=== PATIENT | male | born 1935 | race Caucasian/White ===

== ENCOUNTER 2020-06-23 11:00 | Inpatient (IN) ==
[2020-07-01] MEDS ORDERED: GLUCAGON 1 MG VIAL IM PRN ×2 (09:07)
[2020-07-01] MEDS ORDERED: DEXTROSE 50% 25 GM/50 ML VIAL IV PRN ×2 (09:07)
[2020-07-01 09:34] LABS: Basophils % 0.4 % (0.0-0.8); Eosinophils # 0.3 10*3/uL (0.0-0.87); Eosinophils % 3.7 % (0.00-10.9); Hematocrit 36.6 VOL% (42.0-52.0); Hemoglobin 12.3 GM/DL (14.0-18.0); Immature Granulocytes % 0.5 %; Immature Granulocytes Absolute 0.04 #; Lymphocytes # 0.7 10*3/uL (1.4-4.0); Lymphocytes % 8.5 % (21.2-54.2); Mean Corpuscular HGB Conc 33.6 GM/DL (32-36); Mean Corpuscular Volume 96.1 FL (87-102); Mean Platelet Volume 10.6 FL (9.6-12.0); Monocytes % 12.2 % (1.7-12.7); Neutrophils % 74.7 % (38.7-73.9); Platelet Count 238 T/CUMM (130-400); Red Blood Count 3.81 MC/CUMM (3.8-5.5); Red Cell Distribution Width 13.4 % (9.3-17.3); White Blood Count 7.9 T/CUMM (4-12)
[2020-07-01 09:52] LABS: Albumin 3.3 G/DL (3.4-5.0); Bilirubin,Total 0.4 MG/DL (0.2-1.0); Calcium 9.1 MG/DL (8.5-10.1); Osmolality,Calculated 286.4 MOS/KG (273-304); Potassium 4.6 MMOL/L (3.5-5.1); Total Protein 6.5 G/DL (6.4-8.2)
[2020-07-01] MEDS ORDERED: ZALEPLON 5 MG CAPSULE PO PRN (10:01)
[2020-07-01] MEDS ORDERED: NITROGLYCERIN SL 0.4 MG TABLET SL PRN (10:30)
[2020-07-01] MEDS: CHLORHEXIDINE 0.12% ORAL RINSE 60 ML BOTTLE SWISH/SPIT SCH ×2 (10:55→20:07)
[2020-07-01] MEDS: SODIUM CHLORIDE 0.9% 1,000 ML IV SCH (10:55)
[2020-07-01 11:15] LABS: ABG Base Excess 0.9 MMOL/L (-2.5-2.5); ABG HCO3 25.1 MMOL/L (20-26); ABG Oxygen Saturation 94.9 % (95-100); ABG PCO2 44.3 MM HG (35-48); ABG PH 7.381 (7.35-7.45); ABG PO2 80.9 MM HG (80-95); ABG TCO2 23.4 MMOL/L (23-27)
[2020-07-01] MEDS: INSULIN REGULAR 100 UNIT/ML SUBCUT SCH ×3 (12:21→20:07)
[2020-07-01] MEDS: CHLORHEXIDINE 4% SOLN 118 ML BOTTLE TOP SCH ×2 (14:00→20:06)
[2020-07-01] MEDS: TRAVOPROST 0.004% OPH SOLN 2.5 ML BOTTLE RIGHT EYE SCH (20:06)
[2020-07-01] MEDS: DORZOLAMIDE/TIMOLOL OPH SOLN 10 ML BOTTLE BOTH EYES SCH (20:06)
[2020-07-01] MEDS ORDERED: LOSARTAN 25 MG TABLET PO SCH (21:00)
[2020-07-02] MEDS ORDERED: DIAZEPAM 5 MG TABLET PO ONE ×2 (00:02→05:45)
[2020-07-02] MEDS ORDERED: VANCOMYCIN 500 MG VIAL ONE (04:24)
[2020-07-02] MEDS ORDERED: VANCOMYCIN 1,000 MG VIAL ONE (04:24)
[2020-07-02] MEDS ORDERED: PAPAVERINE 60 MG/2 ML VIAL ONE (04:24)
[2020-07-02] MEDS ORDERED: CEFUROXIME INJ 1,500 MG in SODIUM CHLORIDE 0.9% 100 ML IV ONE (05:00)
[2020-07-02] MEDS ORDERED: LACTATED RINGERS 1,000 ML IV ONE (05:26)
[2020-07-02] MEDS ORDERED: AMINOCAPROIC ACID 5,000 MG/20 ML VIAL ONE (05:26)
[2020-07-02] MEDS ORDERED: SODIUM CHLORIDE 0.9% 1,000 ML IV ONE (05:26)
[2020-07-02] MEDS ORDERED: VECURONIUM 10 MG VIAL IV ONE (05:26)
[2020-07-02] MEDS ORDERED: LIDOCAINE 2% 5 ML VIAL ONE ×2 (05:26→09:32)
[2020-07-02] MEDS ORDERED: ETOMIDATE 40 MG/20 ML VIAL IV ONE (05:26)
[2020-07-02] MEDS ORDERED: SODIUM CHLORIDE 0.9% 250 ML IV ONE (05:26)
[2020-07-02] MEDS ORDERED: HEPARIN/NACL 0.9% 2 UNITS/ML 1,000 UNIT/500 ML BAG IV ONE (05:26)
[2020-07-02] MEDS ORDERED: SUFentanil 250 MCG/5 ML AMP ONE (05:27)
[2020-07-02] MEDS ORDERED: MIDAZOLAM 10 MG/2 ML VIAL ONE ×4 (05:27)
[2020-07-02] MEDS ORDERED: CALCIUM CHLORIDE 1,000 MG/10 ML VIAL IV ONE (05:28)
[2020-07-02] MEDS ORDERED: FAMOTIDINE 20 MG TABLET PO ONE (05:45)
[2020-07-02] MEDS ORDERED: SEVOFLURANE 1 UNIT/15 MINUTE INH ONE ×7 (06:46→10:41)
[2020-07-02] MEDS ORDERED: POTASSIUM CHLORIDE RIDER 100 ML IV ONE ×2 (07:36→12:00)
[2020-07-02] MEDS ORDERED: PHENYLEPHRINE DRIP 40 MG/250 ML PREMIX IV ONE (07:36)
[2020-07-02] MEDS ORDERED: ALBUMIN 5% 25.0 GM/500 ML VIAL IV ONE ×2 (07:36→07:45)
[2020-07-02 07:37] LABS: ABG Base Excess 0.4 MMOL/L (-2.5-2.5); ABG HCO3 24.8 MMOL/L (20-26); ABG Oxygen Saturation 99.3 % (95-100); ABG PCO2 42.3 MM HG (35-48); ABG PH 7.388 (7.35-7.45); ABG TCO2 23.3 MMOL/L (23-27); Glucose Heart Surgery 122 MG/DL (74-106); Hematocrit Heart Surgery 30.7 PERCENT (42-52); Hemoglobin Heart Surgery 9.9 G/DL (14.0-18.0); Ionized Calcium Arterial 1.16 MMOL/L (1.21-1.46); PCO2 Patient Temp Arterial 42.3 MMHG; PH Patient Temp Arterial 7.388; Patient Temperature 37 CELCIUS; Potassium Heart/CVR 3.5 MMOL/L (3.5-5.1); Sodium Heart/CVR 143 MMOL/L (135-145)
[2020-07-02] MEDS ORDERED: PHENYLEPHRINE DRIP 20 MG/250 ML PREMIX IV ONE (07:44)
[2020-07-02] MEDS ORDERED: SUFentanil 50 MCG/ML AMP ONE (07:44)
[2020-07-02 07:56] LABS: Bilirubin,Urine Negative (Negative); Blood, Urine Negative (Negative); Glucose,Urine (UA) Negative (Negative); Ketones,Urine Negative (Negative); Mucus,Urine Occasional /LPF (Occasional); Nitrite,Urine Negative (Negative); Protein,Urine Negative; RBC,Urine 3 /HPF (0-4); Urine Appearance CLEAR (Clear); Urine Color Yellow (Yellow); Urine Specific Gravity 1.012 (1.001-1.035); Urine Urobilinogen < 2.0 EU/DL (0.2-1.0)
[2020-07-02 08:27] LABS: Hematocrit Heart Surgery 18.8 PERCENT (42-52); PCO2 Patient Temp Venous 35.8 MM HG; PH Patient Temp Venous 7.448; PO2 Patient Temp Venous 40.5 MM HG; Potassium Heart/CVR 4.2 MMOL/L (3.5-5.1); VBG Base Excess 1.2 MEQ/L (0-4); VBG HCO3 25.3 MEQ/L (24-28); VBG Oxygen Saturation 85.3 %; VBG PCO2 41.4 MMHG (41-51); VBG PH 7.405; VBG PO2 49.6 MMHG (17-40); VBG Total CO2 24.9 MMOL/L
[2020-07-02] MEDS: SODIUM CHLORIDE 0.9% 1,000 ML IV SCH (08:43)
[2020-07-02] MEDS: INSULIN REGULAR 100 UNIT/ML SUBCUT SCH (08:43)
[2020-07-02] MEDS: CHLORHEXIDINE 4% SOLN 118 ML BOTTLE TOP SCH (08:43)
[2020-07-02] MEDS: CHLORHEXIDINE 0.12% ORAL RINSE 60 ML BOTTLE SWISH/SPIT SCH ×2 (08:43→20:59)
[2020-07-02] MEDS: DORZOLAMIDE/TIMOLOL OPH SOLN 10 ML BOTTLE BOTH EYES SCH ×2 (08:43→21:44)
[2020-07-02 08:56] LABS: Hematocrit Heart Surgery 29.2 PERCENT (42-52); Hemoglobin Heart Surgery 9.4 G/DL (14.0-18.0); PCO2 Patient Temp Venous 30.9 MM HG; PH Patient Temp Venous 7.476; PO2 Patient Temp Venous 36.2 MM HG; Potassium Heart/CVR 5.2 MMOL/L (3.5-5.1); VBG Base Excess -0.1 MEQ/L (0-4); VBG HCO3 24.1 MEQ/L (24-28); VBG Oxygen Saturation 84.4 %; VBG PCO2 35.7 MMHG (41-51); VBG PH 7.432; VBG PO2 44.5 MMHG (17-40); VBG Total CO2 21.8 MMOL/L
[2020-07-02] MEDS ORDERED: THROMBIN TOPICAL (RECOMBINANT) 5,000 UNIT VIAL TOP ONE (09:20)
[2020-07-02] MEDS ORDERED: ALBUMIN 25% 25 GM/100 ML VIAL IV ONE (09:32)
[2020-07-02] MEDS ORDERED: MAGNESIUM SULFATE 5 GM/10 ML VIAL IV ONE (09:32)
[2020-07-02] MEDS ORDERED: methylPREDNISolone SOD SUC 1,000 MG/8 ML VIAL ONE (09:32)
[2020-07-02] MEDS ORDERED: MANNITOL 100 GM/500 ML BAG IV ONE (09:33)
[2020-07-02] MEDS ORDERED: FUROSEMIDE 20 MG/2 ML VIAL ONE (09:33)
[2020-07-02] MEDS ORDERED: DEXTROSE 5% KCL 20 MEQ 20 MEQ/1,000 ML BAG IV ONE (09:33)
[2020-07-02] MEDS ORDERED: PROTAMINE SULFATE 250 MG/25 ML VIAL IV ONE (09:33)
[2020-07-02] MEDS ORDERED: HEPARIN 10,000 UNIT/10 ML VIAL ONE (09:33)
[2020-07-02] MEDS ORDERED: SODIUM BICARBONATE 50 MEQ/50 ML VIAL IV ONE (09:33)
[2020-07-02 09:43] LABS: ABG Base Excess -0.5 MMOL/L (-2.5-2.5); ABG Oxygen Saturation 99.6 % (95-100); ABG PCO2 37.3 MM HG (35-48); ABG PH 7.413 (7.35-7.45); ABG TCO2 21.3 MMOL/L (23-27); Glucose Heart Surgery 275 MG/DL (74-106); Hematocrit Heart Surgery 34.1 PERCENT (42-52); Ionized Calcium Arterial 1.29 MMOL/L (1.21-1.46); PCO2 Patient Temp Arterial 37.3 MMHG; PH Patient Temp Arterial 7.413; Patient Temperature 37 CELCIUS; Potassium Heart/CVR 4.7 MMOL/L (3.5-5.1); Sodium Heart/CVR 135 MMOL/L (135-145)
[2020-07-02] MEDS ORDERED: FAMOTIDINE 20 MG/2 ML VIAL IV ONE (09:49)
[2020-07-02] MEDS ORDERED: diphenhydrAMINE 50 MG/1 ML VIAL ONE (09:51)
[2020-07-02] MEDS ORDERED: ALBUTEROL INHALER 18 GM INH ONE (10:00)
[2020-07-02] MEDS: SODIUM CHLORIDE 0.45% 1,000 ML IV SCH ×2 (10:30)
[2020-07-02] MEDS: LACTATED RINGERS 1,000 ML IV PRN ×3 (10:30→13:00)
[2020-07-02] MEDS: PHENYLEPHRINE DRIP 40 MG/250 ML PREMIX IV PRN (10:40)
[2020-07-02] MEDS ORDERED: CHLORHEXIDINE 4% SOLN 118 ML BOTTLE TOP PRN (10:51)
[2020-07-02] MEDS ORDERED: VECURONIUM 10 MG VIAL IV PRN ×2 (10:51)
[2020-07-02] MEDS ORDERED: MIDAZOLAM 10 MG/2 ML VIAL IV PRN (10:51)
[2020-07-02] MEDS ORDERED: MORPHINE 4 MG/1 ML VIAL IV PRN (10:51)
[2020-07-02] MEDS ORDERED: MAGNESIUM SULF RIDER 4 GM in PREMIX 1 EACH IV PRN (10:51)
[2020-07-02] MEDS ORDERED: INSULIN REGULAR 100 UNIT/ML IV ONE (10:51)
[2020-07-02] MEDS ORDERED: DEXTROSE 50% 25 GM/50 ML VIAL IV PRN ×2 (10:51)
[2020-07-02] MEDS ORDERED: MAGNESIUM SULF RIDER 2 GM in PREMIX 1 EACH IV PRN (10:51)
[2020-07-02] MEDS ORDERED: LACTATED RINGERS 250 ML IV PRN (10:51)
[2020-07-02] MEDS ORDERED: CALCIUM CHLORIDE 1,000 MG/10 ML SYRINGE IV PRN (10:51)
[2020-07-02] MEDS ORDERED: INSULIN REGULAR 100 UNIT/ML IV PRN (10:51)
[2020-07-02] MEDS ORDERED: ACETAMINOPHEN 650 MG SUPP RECTAL PRN (10:51)
[2020-07-02] MEDS ORDERED: NITROPRUSSIDE 100 MG in DEXTROSE 5% 250 ML IV PRN (10:51)
[2020-07-02] MEDS ORDERED: ONDANSETRON 4 MG/2 ML VIAL IV PRN (10:51)
[2020-07-02] MEDS ORDERED: MIDAZOLAM 2 MG/2 ML VIAL IV PRN (10:51)
[2020-07-02] MEDS ORDERED: MORPHINE 10 MG/1 ML VIAL IV PRN (10:51)
[2020-07-02 11:06] LABS: ABG Base Excess -0.1 MMOL/L (-2.5-2.5); ABG HCO3 24.4 MMOL/L (20-26); ABG Oxygen Saturation 98.1 % (95-100); ABG PCO2 39.3 MM HG (35-48); ABG PH 7.403 (7.35-7.45); Glucose Heart Surgery 270 MG/DL (74-106); Hematocrit Heart Surgery 33.8 PERCENT (42-52); Potassium Heart/CVR 3.9 MMOL/L (3.5-5.1)
[2020-07-02 11:08] LABS: Basophils % 0.2 % (0.0-0.8); Eosinophils # 0.1 10*3/uL (0.0-0.87); Hematocrit 31.7 VOL% (42.0-52.0); Hemoglobin 10.6 GM/DL (14.0-18.0); Immature Granulocytes % 1.3 %; Immature Granulocytes Absolute 0.15 #; Lymphocytes # 0.8 10*3/uL (1.4-4.0); Lymphocytes % 6.9 % (21.2-54.2); Mean Corpuscular HGB Conc 33.4 GM/DL (32-36); Mean Corpuscular Volume 93.2 FL (87-102); Mean Platelet Volume 10.6 FL (9.6-12.0); Monocytes % 6.9 % (1.7-12.7); Neutrophils % 83.7 % (38.7-73.9); Platelet Count 189 T/CUMM (130-400); Red Cell Distribution Width 14.2 % (9.3-17.3); White Blood Count 11.5 T/CUMM (4-12)
[2020-07-02 11:19] LABS: INR 1.2; Partial Thromboplastin Time 28.2 SECS (23.9-33.8)
[2020-07-02] MEDS ORDERED: PROTAMINE SULFATE 50 MG/5 ML VIAL IV ONE ×2 (11:33→11:34)
[2020-07-02 11:39] LABS: CKMB % 6.8 %
[2020-07-02] MEDS: POTASSIUM CHLORIDE RIDER 20 MEQ in PREMIX 1 EACH IV PRN ×3 (11:40→22:16)
[2020-07-02 11:43] LABS: Albumin 3.3 G/DL (3.4-5.0); Bilirubin,Total 1.1 MG/DL (0.2-1.0); Calcium 8.8 MG/DL (8.5-10.1); Osmolality,Calculated 284.7 MOS/KG (273-304); Potassium 4.1 MMOL/L (3.5-5.1); Total Protein 5.6 G/DL (6.4-8.2); Troponin I 5.12 NG/ML (0.00-0.045)
[2020-07-02] MEDS: ALBUMIN 5% 12.5 GM/250 ML VIAL IV PRN ×2 (11:55→16:28)
[2020-07-02] MEDS: POTASSIUM CHLORIDE RIDER 10 MEQ in PREMIX 1 EACH IV PRN ×2 (12:10→14:29)
[2020-07-02 13:38] LABS: ABG Base Excess 1.8 MMOL/L (-2.5-2.5); ABG HCO3 25.8 MMOL/L (20-26); ABG Oxygen Saturation 97.3 % (95-100); ABG PCO2 37.5 MM HG (35-48); ABG PH 7.455 (7.35-7.45); ABG PO2 122.2 MM HG (80-95); ABG TCO2 26.9 MMOL/L (23-27); Glucose Heart Surgery 233 MG/DL (74-106); Potassium Heart/CVR 3.9 MMOL/L (3.5-5.1)
[2020-07-02] MEDS: INSULIN REGULAR DRIP 100 ML IV SCH (13:52)
[2020-07-02 16:19] LABS: ABG Base Excess 0.4 MMOL/L (-2.5-2.5); ABG HCO3 24.8 MMOL/L (20-26); ABG Oxygen Saturation 98.3 % (95-100); ABG PCO2 41.3 MM HG (35-48); ABG PH 7.396 (7.35-7.45); ABG TCO2 22.6 MMOL/L (23-27); Glucose Heart Surgery 230 MG/DL (74-106); Hematocrit Heart Surgery 35.2 PERCENT (42-52); Hemoglobin Heart Surgery 11.4 G/DL (14.0-18.0); Potassium Heart/CVR 3.7 MMOL/L (3.5-5.1)
[2020-07-02] MEDS: CEFUROXIME INJ 1,500 MG in SODIUM CHLORIDE 0.9% 100 ML IV SCH (18:24)
[2020-07-02 19:58] LABS: CKMB % 4.9 %
[2020-07-02 19:59] LABS: Troponin I 4.38 NG/ML (0.00-0.045)
[2020-07-02] MEDS: TRAVOPROST 0.004% OPH SOLN 2.5 ML BOTTLE RIGHT EYE SCH (21:45)
[2020-07-02 22:00] LABS: ABG Base Excess 0.6 MMOL/L (-2.5-2.5); ABG Oxygen Saturation 97.6 % (95-100); ABG PCO2 49.1 MM HG (35-48); ABG PH 7.347 (7.35-7.45); ABG TCO2 24.2 MMOL/L (23-27); Glucose Heart Surgery 113 MG/DL (74-106); Hematocrit Heart Surgery 35.3 PERCENT (42-52); Hemoglobin Heart Surgery 11.4 G/DL (14.0-18.0); Potassium Heart/CVR 3.8 MMOL/L (3.5-5.1)
[2020-07-02 23:00] LABS: ABG Base Excess -0.8 MMOL/L (-2.5-2.5); ABG HCO3 23.7 MMOL/L (20-26); ABG Oxygen Saturation 97.3 % (95-100); ABG PCO2 53.4 MM HG (35-48); ABG PH 7.302 (7.35-7.45); ABG TCO2 23.9 MMOL/L (23-27); Glucose Heart Surgery 134 MG/DL (74-106); Hemoglobin Heart Surgery 11.4 G/DL (14.0-18.0); Potassium Heart/CVR 4.9 MMOL/L (3.5-5.1)
[2020-07-02] MEDS ORDERED: FUROSEMIDE 40 MG/4 ML VIAL IV ONE (23:07)
[2020-07-03 00:02] LABS: ABG Base Excess -1.2 MMOL/L (-2.5-2.5); ABG HCO3 23.4 MMOL/L (20-26); ABG Oxygen Saturation 97.3 % (95-100); ABG PCO2 55.9 MM HG (35-48); ABG PH 7.284 (7.35-7.45); Glucose Heart Surgery 135 MG/DL (74-106); Hematocrit Heart Surgery 35.9 PERCENT (42-52); Hemoglobin Heart Surgery 11.6 G/DL (14.0-18.0); Potassium Heart/CVR 4.6 MMOL/L (3.5-5.1)
[2020-07-03] MEDS: ALBUTEROL/IPRATROPIUM 3 ML NEB RESP TX SCH ×7 (00:41→23:02)
[2020-07-03 01:08] LABS: ABG Base Excess -0.2 MMOL/L (-2.5-2.5); ABG HCO3 24.2 MMOL/L (20-26); ABG Oxygen Saturation 97.1 % (95-100); ABG PCO2 58.5 MM HG (35-48); ABG PH 7.284 (7.35-7.45); Glucose Heart Surgery 121 MG/DL (74-106); Hematocrit Heart Surgery 36.6 PERCENT (42-52); Hemoglobin Heart Surgery 11.9 G/DL (14.0-18.0); Potassium Heart/CVR 4.4 MMOL/L (3.5-5.1)
[2020-07-03] MEDS: POTASSIUM CHLORIDE RIDER 20 MEQ in PREMIX 1 EACH IV PRN (01:23)
[2020-07-03] MEDS ORDERED: ALBUTEROL/IPRATROPIUM 3 ML NEB RESP TX SCH (03:00)
[2020-07-03 04:16] LABS: ABG Base Excess -4.2 MMOL/L (-2.5-2.5); ABG HCO3 20.9 MMOL/L (20-26); ABG Oxygen Saturation 96.2 % (95-100); ABG PCO2 63.8 MM HG (35-48); ABG TCO2 23.1 MMOL/L (23-27); Glucose Heart Surgery 147 MG/DL (74-106); Hematocrit Heart Surgery 35.7 PERCENT (42-52); Hemoglobin Heart Surgery 11.6 G/DL (14.0-18.0); Potassium Heart/CVR 4.7 MMOL/L (3.5-5.1)
[2020-07-03 04:17] LABS: ABG PH 7.204 (7.35-7.45)
[2020-07-03 04:21] LABS: Basophils % 0.1 % (0.0-0.8); Hematocrit 34.8 VOL% (42.0-52.0); Hemoglobin 11.3 GM/DL (14.0-18.0); Immature Granulocytes % 0.7 %; Immature Granulocytes Absolute 0.15 #; Lymphocytes # 1.2 10*3/uL (1.4-4.0); Lymphocytes % 5.9 % (21.2-54.2); Mean Corpuscular HGB Conc 32.5 GM/DL (32-36); Mean Corpuscular Volume 92.6 FL (87-102); Mean Platelet Volume 11.2 FL (9.6-12.0); Monocytes % 8.1 % (1.7-12.7); Neutrophils % 85.2 % (38.7-73.9); Platelet Count 152 T/CUMM (130-400); Red Blood Count 3.76 MC/CUMM (3.8-5.5); Red Cell Distribution Width 16.4 % (9.3-17.3); White Blood Count 20.7 T/CUMM (4-12)
[2020-07-03 04:42] LABS: Albumin 3.5 G/DL (3.4-5.0); Bilirubin,Direct 0.31 MG/DL (0.0-0.20); Bilirubin,Total 0.8 MG/DL (0.2-1.0); Calcium 8.4 MG/DL (8.5-10.1); Potassium 4.8 MMOL/L (3.5-5.1); Total Protein 6.1 G/DL (6.4-8.2)
[2020-07-03 04:50] LABS: Band Neutrophils 1 % (0-10); Eosinophils 1 % (0-10); Lymphocytes 6 % (20-55); Segmented Neutrophils 90 % (50-85); Total Cells Counted 100
[2020-07-03 04:51] LABS: Platelet Estimate Normal
[2020-07-03] MEDS ORDERED: HALOPERIDOL 5 MG/ML AMP IM ONE (05:00)
[2020-07-03 05:16] LABS: CKMB % 3.9 %
[2020-07-03 05:17] LABS: Troponin I 3.79 NG/ML (0.00-0.045)
[2020-07-03] MEDS: KETOROLAC 15 MG/1 ML VIAL IV SCH ×4 (05:23→23:06)
[2020-07-03] MEDS ORDERED: HALOPERIDOL 5 MG/ML AMP IV ONE ×2 (05:30→05:37)
[2020-07-03] MEDS: CEFUROXIME INJ 1,500 MG in SODIUM CHLORIDE 0.9% 100 ML IV SCH ×2 (05:44→17:27)
[2020-07-03] MEDS: DORZOLAMIDE/TIMOLOL OPH SOLN 10 ML BOTTLE BOTH EYES SCH ×2 (09:46→20:51)
[2020-07-03] MEDS: CHLORHEXIDINE 0.12% ORAL RINSE 60 ML BOTTLE SWISH/SPIT SCH ×2 (11:42→20:49)
[2020-07-03] MEDS: HALOPERIDOL 5 MG/ML AMP IV PRN ×2 (11:55→16:53)
[2020-07-03 12:27] LABS: CKMB % 2.3 %
[2020-07-03 12:31] LABS: Troponin I 3.57 NG/ML (0.00-0.045)
[2020-07-03] MEDS: INSULIN REGULAR DRIP 100 ML IV SCH (14:02)
[2020-07-03] MEDS: SODIUM CHLORIDE 0.45% 1,000 ML IV SCH ×2 (14:04)
[2020-07-03] MEDS: SODIUM CHLOR 0.45% KCL 20 MEQ 20 MEQ/1,000 ML BAG IV SCH (14:30)
[2020-07-03] MEDS: ALPRAZolam 0.25 MG TABLET PO PRN (18:40)
[2020-07-03] MEDS: ZIPRASIDONE 20 MG/1 ML VIAL IM PRN (18:41)
[2020-07-03] MEDS: INSULIN REGULAR 100 UNIT/ML SUBCUT SCH (19:32)
[2020-07-03] MEDS: TRAVOPROST 0.004% OPH SOLN 2.5 ML BOTTLE RIGHT EYE SCH (20:51)
[2020-07-04] MEDS: INSULIN REGULAR 100 UNIT/ML SUBCUT SCH ×6 (00:15→21:25)
[2020-07-04] MEDS: ZIPRASIDONE 20 MG/1 ML VIAL IM PRN ×2 (01:16→07:58)
[2020-07-04] MEDS: ALBUTEROL/IPRATROPIUM 3 ML NEB RESP TX SCH (02:45)
[2020-07-04] MEDS: ALPRAZolam 0.25 MG TABLET PO PRN (03:49)
[2020-07-04] MEDS ORDERED: AMIODARONE INJ 150 MG in DEXTROSE 5% 100 ML IV ONE (04:48)
[2020-07-04] MEDS ORDERED: AMIODARONE 150 MG/3 ML VIAL ONE (04:49)
[2020-07-04] MEDS ORDERED: AMIODARONE 450 MG/9 ML VIAL IV ONE ×2 (04:51→12:34)
[2020-07-04 04:53] LABS: ABG Base Excess 1.5 MMOL/L (-2.5-2.5); ABG HCO3 25.5 MMOL/L (20-26); ABG Oxygen Saturation 86.5 % (95-100); ABG PCO2 41.3 MM HG (35-48); ABG PO2 54.1 MM HG (80-95); ABG TCO2 23.5 MMOL/L (23-27); Glucose Heart Surgery 184 MG/DL (74-106); Hematocrit Heart Surgery 34.8 PERCENT (42-52); Hemoglobin Heart Surgery 11.3 G/DL (14.0-18.0); Potassium Heart/CVR 4.4 MMOL/L (3.5-5.1)
[2020-07-04 04:55] LABS: Basophils % 0.1 % (0.0-0.8); Hematocrit 33.5 VOL% (42.0-52.0); Immature Granulocytes % 0.6 %; Lymphocytes # 0.7 10*3/uL (1.4-4.0); Lymphocytes % 4.1 % (21.2-54.2); Mean Corpuscular HGB Conc 32.8 GM/DL (32-36); Mean Corpuscular Volume 92.3 FL (87-102); Mean Platelet Volume 11.1 FL (9.6-12.0); Monocytes % 10.7 % (1.7-12.7); Neutrophils % 84.5 % (38.7-73.9); Platelet Count 128 T/CUMM (130-400); Red Blood Count 3.63 MC/CUMM (3.8-5.5); White Blood Count 16.9 T/CUMM (4-12)
[2020-07-04] MEDS ORDERED: AMIODARONE INJ 450 MG in DEXTROSE 5% 241 ML IV SCH (05:00)
[2020-07-04 05:09] LABS: Albumin 3.1 G/DL (3.4-5.0); Bilirubin,Direct 0.29 MG/DL (0.0-0.20); Bilirubin,Total 0.8 MG/DL (0.2-1.0); Calcium 8.6 MG/DL (8.5-10.1); Osmolality,Calculated 290.5 MOS/KG (273-304); Potassium 4.4 MMOL/L (3.5-5.1); Total Protein 5.8 G/DL (6.4-8.2)
[2020-07-04 05:13] LABS: Lymphocytes 6 % (20-55); Segmented Neutrophils 85 % (50-85); Total Cells Counted 100
[2020-07-04 05:17] LABS: ABG Base Excess 0.5 MMOL/L (-2.5-2.5); ABG HCO3 24.8 MMOL/L (20-26); ABG Oxygen Saturation 96.1 % (95-100); ABG PCO2 43.8 MM HG (35-48); ABG PH 7.379 (7.35-7.45); ABG PO2 88.2 MM HG (80-95); ABG TCO2 23.1 MMOL/L (23-27)
[2020-07-04] MEDS ORDERED: FUROSEMIDE 40 MG/4 ML VIAL IV ONE (05:23)
[2020-07-04] MEDS ORDERED: DILTIAZEM 50 MG/10 ML VIAL IV ONE (05:23)
[2020-07-04] MEDS: KETOROLAC 15 MG/1 ML VIAL IV SCH ×3 (05:52→16:43)
[2020-07-04] MEDS: DILTIAZEM INJ 100 MG in SODIUM CHLORIDE 0.9% 100 ML IV SCH (06:17)
[2020-07-04 06:46] LABS: Bilirubin,Urine Negative (Negative); Blood, Urine Large mg/dL (Negative); Glucose,Urine (UA) Negative (Negative); Hyaline Casts,Urine 23 /LPF (0-3); Ketones,Urine 5 mg/dL (Negative); Mucus,Urine Occasional /LPF (Occasional); Nitrite,Urine Negative (Negative); Protein,Urine 30 MG/DL; RBC,Urine 58 /HPF (0-4); Urine Appearance Slightly Hazy (Clear); Urine Color Yellow (Yellow); Urine Specific Gravity 1.019 (1.001-1.035); Urine Urobilinogen < 2.0 EU/DL (0.2-1.0); WBC,Urine 4 /HPF (0-6)
[2020-07-04 07:14] LABS: ABG Base Excess 0.9 MMOL/L (-2.5-2.5); ABG HCO3 25.7 MMOL/L (20-26); ABG PCO2 41.4 MM HG (35-48); ABG PO2 154.6 MM HG (80-95); ABG TCO2 26.9 MMOL/L (23-27)
[2020-07-04] MEDS: TAMSULOSIN 0.4 MG CAPSULE PO SCH (08:13)
[2020-07-04] MEDS: CHLORHEXIDINE 0.12% ORAL RINSE 60 ML BOTTLE SWISH/SPIT SCH ×2 (08:13→21:19)
[2020-07-04] MEDS: METOPROLOL TARTRATE 25 MG TABLET PO SCH ×2 (08:13→21:37)
[2020-07-04] MEDS: ASPIRIN EC 81 MG TABLET PO SCH (08:13)
[2020-07-04] MEDS: DORZOLAMIDE/TIMOLOL OPH SOLN 10 ML BOTTLE BOTH EYES SCH ×2 (08:13→21:23)
[2020-07-04] MEDS: ATORVASTATIN 20 MG TABLET PO SCH (09:42)
[2020-07-04] MEDS ORDERED: HALOPERIDOL 5 MG/ML AMP IM PRN (12:19)
[2020-07-04] MEDS: AMIODARONE INJ 450 MG in DEXTROSE 5% 241 ML IV SCH (12:56)
[2020-07-04] MEDS: ALBUMIN 5% 12.5 GM/250 ML VIAL IV PRN ×2 (14:00→14:59)
[2020-07-04] MEDS: SODIUM CHLOR 0.45% KCL 20 MEQ 20 MEQ/1,000 ML BAG IV SCH (14:58)
[2020-07-04] MEDS: PHENYLEPHRINE DRIP 40 MG/250 ML PREMIX IV PRN (14:59)
[2020-07-04] MEDS: ASCORBIC ACID 500 MG TABLET PO SCH (21:17)
[2020-07-04] MEDS: TRAVOPROST 0.004% OPH SOLN 2.5 ML BOTTLE RIGHT EYE SCH (21:22)
[2020-07-05] MEDS: KETOROLAC 15 MG/1 ML VIAL IV SCH ×4 (00:10→16:09)
[2020-07-05] MEDS: INSULIN REGULAR 100 UNIT/ML SUBCUT SCH ×6 (00:15→20:16)
[2020-07-05 03:52] LABS: Basophils % 0.1 % (0.0-0.8); Hematocrit 31.8 VOL% (42.0-52.0); Hemoglobin 10.6 GM/DL (14.0-18.0); Immature Granulocytes % 0.6 %; Immature Granulocytes Absolute 0.09 #; Lymphocytes # 0.4 10*3/uL (1.4-4.0); Lymphocytes % 2.4 % (21.2-54.2); Mean Corpuscular HGB Conc 33.3 GM/DL (32-36); Mean Corpuscular Volume 91.6 FL (87-102); Mean Platelet Volume 12.1 FL (9.6-12.0); Monocytes % 10.2 % (1.7-12.7); Neutrophils % 86.7 % (38.7-73.9); Platelet Count 103 T/CUMM (130-400); Red Blood Count 3.47 MC/CUMM (3.8-5.5); Red Cell Distribution Width 15.5 % (9.3-17.3)
[2020-07-05 03:53] LABS: Calcium 8.3 MG/DL (8.5-10.1); Osmolality,Calculated 287.8 MOS/KG (273-304); Potassium 4.2 MMOL/L (3.5-5.1)
[2020-07-05 03:57] LABS: Albumin 3.2 G/DL (3.4-5.0); Bilirubin,Direct 0.43 MG/DL (0.0-0.20); Bilirubin,Total 1.1 MG/DL (0.2-1.0); Calcium 8.4 MG/DL (8.5-10.1); Osmolality,Calculated 294.3 MOS/KG (273-304); Potassium 4.2 MMOL/L (3.5-5.1); Total Protein 5.7 G/DL (6.4-8.2)
[2020-07-05] MEDS: AMIODARONE INJ 450 MG in DEXTROSE 5% 241 ML IV SCH ×2 (04:10→18:03)
[2020-07-05] MEDS: DILTIAZEM INJ 100 MG in SODIUM CHLORIDE 0.9% 100 ML IV SCH ×2 (05:11→13:28)
[2020-07-05] MEDS: POTASSIUM CHLORIDE RIDER 20 MEQ in PREMIX 1 EACH IV PRN (05:38)
[2020-07-05 06:26] LABS: Band Neutrophils 1 % (0-10); Lymphocytes 4 % (20-55); Metamyelocytes 2 %; Microcytosis Slight; Platelet Estimate Decreased; Segmented Neutrophils 90 % (50-85); Total Cells Counted 100
[2020-07-05] MEDS: ALBUMIN 5% 12.5 GM/250 ML VIAL IV PRN ×3 (08:45→13:28)
[2020-07-05] MEDS ORDERED: AMIODARONE INJ 50 MG in DEXTROSE 5% 100 ML IV ONE (08:46)
[2020-07-05] MEDS ORDERED: AMIODARONE 150 MG/3 ML VIAL ONE (08:52)
[2020-07-05] MEDS: ASPIRIN EC 81 MG TABLET PO SCH (09:24)
[2020-07-05] MEDS: TAMSULOSIN 0.4 MG CAPSULE PO SCH (09:24)
[2020-07-05] MEDS: DORZOLAMIDE/TIMOLOL OPH SOLN 10 ML BOTTLE BOTH EYES SCH ×2 (09:24→21:13)
[2020-07-05] MEDS: ASCORBIC ACID 500 MG TABLET PO SCH ×2 (09:24→21:13)
[2020-07-05] MEDS: CHLORHEXIDINE 0.12% ORAL RINSE 60 ML BOTTLE SWISH/SPIT SCH ×2 (09:24→21:13)
[2020-07-05] MEDS: SODIUM CHLOR 0.45% KCL 20 MEQ 20 MEQ/1,000 ML BAG IV SCH (13:39)
[2020-07-05] MEDS ORDERED: FUROSEMIDE 40 MG/4 ML VIAL IV ONE ×2 (17:08)
[2020-07-05] MEDS: ALBUTEROL/IPRATROPIUM 3 ML NEB RESP TX SCH (19:15)
[2020-07-05] MEDS: TRAVOPROST 0.004% OPH SOLN 2.5 ML BOTTLE RIGHT EYE SCH (21:13)
[2020-07-06] MEDS: KETOROLAC 15 MG/1 ML VIAL IV SCH ×5 (00:03→23:07)
[2020-07-06] MEDS: INSULIN REGULAR 100 UNIT/ML SUBCUT SCH ×6 (00:22→21:10)
[2020-07-06] MEDS: ALBUTEROL/IPRATROPIUM 3 ML NEB RESP TX SCH ×4 (01:49→19:17)
[2020-07-06 04:07] LABS: ABG Base Excess 4.1 MMOL/L (-2.5-2.5); ABG HCO3 28.8 MMOL/L (20-26); ABG Oxygen Saturation 97.1 % (95-100); ABG PCO2 44.1 MM HG (35-48); ABG PH 7.433 (7.35-7.45); ABG PO2 101.5 MM HG (80-95); ABG TCO2 30.2 MMOL/L (23-27)
[2020-07-06 04:15] LABS: Eosinophils % 0.2 % (0.00-10.9); Hematocrit 31.1 VOL% (42.0-52.0); Immature Granulocytes % 0.6 %; Immature Granulocytes Absolute 0.07 #; Lymphocytes # 0.3 10*3/uL (1.4-4.0); Lymphocytes % 2.5 % (21.2-54.2); Mean Corpuscular HGB Conc 32.2 GM/DL (32-36); Mean Corpuscular Volume 93.7 FL (87-102); Mean Platelet Volume 12.2 FL (9.6-12.0); Monocytes % 12.3 % (1.7-12.7); Neutrophils % 84.4 % (38.7-73.9); Platelet Count 141 T/CUMM (130-400); Red Blood Count 3.32 MC/CUMM (3.8-5.5); Red Cell Distribution Width 15.6 % (9.3-17.3); White Blood Count 12.2 T/CUMM (4-12)
[2020-07-06 04:51] LABS: Calcium 8.3 MG/DL (8.5-10.1); Osmolality,Calculated 298.1 MOS/KG (273-304); Potassium 4.1 MMOL/L (3.5-5.1)
[2020-07-06] MEDS: DILTIAZEM INJ 100 MG in SODIUM CHLORIDE 0.9% 100 ML IV SCH ×2 (05:41→18:50)
[2020-07-06 06:35] LABS: Anisocytosis 1+; Eosinophils 1 % (0-10); Lymphocytes 2 % (20-55); Macrocytosis 1+; Nucleated Red Blood Cells 1 (0-5); Platelet Estimate Decreased; Segmented Neutrophils 82 % (50-85); Total Cells Counted 100
[2020-07-06] MEDS: AMIODARONE INJ 450 MG in DEXTROSE 5% 241 ML IV SCH (08:31)
[2020-07-06] MEDS: CHLORHEXIDINE 0.12% ORAL RINSE 60 ML BOTTLE SWISH/SPIT SCH ×2 (09:40→21:11)
[2020-07-06] MEDS: DORZOLAMIDE/TIMOLOL OPH SOLN 10 ML BOTTLE BOTH EYES SCH ×2 (09:40→21:11)
[2020-07-06] MEDS: ASPIRIN EC 81 MG TABLET PO SCH (09:40)
[2020-07-06] MEDS: ATORVASTATIN 20 MG TABLET PO SCH (09:40)
[2020-07-06] MEDS: ASCORBIC ACID 500 MG TABLET PO SCH ×2 (09:40→21:11)
[2020-07-06] MEDS: TAMSULOSIN 0.4 MG CAPSULE PO SCH (09:40)
[2020-07-06] MEDS ORDERED: METOPROLOL TARTRATE 25 MG TABLET PO SCH (10:00)
[2020-07-06] MEDS ORDERED: amLODIPine 2.5 MG TABLET PO SCH (10:00)
[2020-07-06] MEDS: AMIODARONE 200 MG TABLET PO SCH ×3 (10:36→20:10)
[2020-07-06] MEDS: ALPRAZolam 0.25 MG TABLET PO PRN ×2 (12:42→21:10)
[2020-07-06] MEDS: SODIUM CHLOR 0.45% KCL 20 MEQ 20 MEQ/1,000 ML BAG IV SCH (14:38)
[2020-07-06] MEDS ORDERED: HEPARIN/NACL 0.9% 2 UNITS/ML 1,000 UNIT/500 ML BAG IV ONE (15:20)
[2020-07-06] MEDS ORDERED: hydrALAZINE 20 MG/1 ML VIAL IV PRN (17:52)
[2020-07-06] MEDS: oxyCODONE/ACETAMINOPHEN 5-325 MG TABLET PO PRN (18:10)
[2020-07-06] MEDS ORDERED: DILTIAZEM 25 MG/5 ML VIAL IV ONE (18:34)
[2020-07-06] MEDS ORDERED: DILTIAZEM 50 MG/10 ML VIAL IV ONE (18:43)
[2020-07-06] MEDS: TRAVOPROST 0.004% OPH SOLN 2.5 ML BOTTLE RIGHT EYE SCH (21:11)
[2020-07-06] MEDS ORDERED: AMIODARONE INJ 50 MG in DEXTROSE 5% 100 ML IV ONE (21:37)
[2020-07-06] MEDS ORDERED: DIGOXIN 0.5 MG/2 ML AMP IV ONE (21:39)
[2020-07-07] MEDS: ALBUTEROL/IPRATROPIUM 3 ML NEB RESP TX SCH ×4 (00:24→19:23)
[2020-07-07] MEDS: INSULIN REGULAR 100 UNIT/ML SUBCUT SCH ×6 (01:52→20:21)
[2020-07-07] MEDS ORDERED: DIGOXIN 0.5 MG/2 ML AMP IV ONE ×2 (04:00)
[2020-07-07] MEDS: KETOROLAC 15 MG/1 ML VIAL IV SCH ×4 (05:36→23:11)
[2020-07-07] MEDS: DILTIAZEM INJ 100 MG in SODIUM CHLORIDE 0.9% 100 ML IV SCH (05:36)
[2020-07-07 06:08] LABS: ABG Base Excess 2.5 MMOL/L (-2.5-2.5); ABG HCO3 26.6 MMOL/L (20-26); ABG Oxygen Saturation 93.8 % (95-100); ABG PCO2 39.3 MM HG (35-48); ABG PH 7.449 (7.35-7.45); ABG TCO2 27.8 MMOL/L (23-27)
[2020-07-07 06:14] LABS: Basophils % 0.2 % (0.0-0.8); Eosinophils # 0.1 10*3/uL (0.0-0.87); Eosinophils % 0.8 % (0.00-10.9); Hematocrit 31.3 VOL% (42.0-52.0); Hemoglobin 10.4 GM/DL (14.0-18.0); Immature Granulocytes % 0.6 %; Immature Granulocytes Absolute 0.07 #; Lymphocytes # 0.3 10*3/uL (1.4-4.0); Lymphocytes % 3.1 % (21.2-54.2); Mean Corpuscular HGB Conc 33.2 GM/DL (32-36); Mean Corpuscular Volume 92.6 FL (87-102); Mean Platelet Volume 11.4 FL (9.6-12.0); Monocytes % 15.6 % (1.7-12.7); Neutrophils % 79.7 % (38.7-73.9); Platelet Count 162 T/CUMM (130-400); Red Blood Count 3.38 MC/CUMM (3.8-5.5); Red Cell Distribution Width 15.4 % (9.3-17.3); White Blood Count 11.1 T/CUMM (4-12)
[2020-07-07 06:41] LABS: Band Neutrophils 2 % (0-10); Eosinophils 1 % (0-10); Lymphocytes 1 % (20-55); Segmented Neutrophils 85 % (50-85); Total Cells Counted 100
[2020-07-07 06:42] LABS: Bilirubin,Total 1.8 MG/DL (0.2-1.0); Calcium 8.7 MG/DL (8.5-10.1); Hypochromasia 1+; Microcytosis Slight; Osmolality,Calculated 300.8 MOS/KG (273-304); Platelet Estimate Adequate; Total Protein 5.6 G/DL (6.4-8.2)
[2020-07-07 06:50] LABS: Calcium 8.6 MG/DL (8.5-10.1); Osmolality,Calculated 298.1 MOS/KG (273-304); Potassium 3.9 MMOL/L (3.5-5.1)
[2020-07-07] MEDS ORDERED: FUROSEMIDE 40 MG/4 ML VIAL IV ONE (08:55)
[2020-07-07] MEDS ORDERED: METOPROLOL TARTRATE 25 MG TABLET PO SCH ×2 (09:00→10:00)
[2020-07-07] MEDS: oxyCODONE/ACETAMINOPHEN 5-325 MG TABLET PO PRN ×3 (09:06→20:32)
[2020-07-07] MEDS: ASPIRIN EC 81 MG TABLET PO SCH (09:55)
[2020-07-07] MEDS: TAMSULOSIN 0.4 MG CAPSULE PO SCH (09:55)
[2020-07-07] MEDS: APIXABAN 2.5 MG TABLET PO SCH ×2 (09:55→20:22)
[2020-07-07] MEDS: ATORVASTATIN 20 MG TABLET PO SCH (09:55)
[2020-07-07] MEDS: ALPRAZolam 0.25 MG TABLET PO PRN (09:55)
[2020-07-07] MEDS: DILTIAZEM 30 MG TABLET PO SCH ×4 (09:55→20:21)
[2020-07-07] MEDS: ASCORBIC ACID 500 MG TABLET PO SCH ×2 (09:56→20:21)
[2020-07-07] MEDS: AMIODARONE 200 MG TABLET PO SCH ×2 (09:56→20:21)
[2020-07-07] MEDS: CHLORHEXIDINE 0.12% ORAL RINSE 60 ML BOTTLE SWISH/SPIT SCH ×2 (09:56→20:20)
[2020-07-07] MEDS: DORZOLAMIDE/TIMOLOL OPH SOLN 10 ML BOTTLE BOTH EYES SCH ×2 (10:03→20:22)
[2020-07-07] MEDS ORDERED: DIGOXIN 0.25 MG TABLET PO SCH (13:00)
[2020-07-07] MEDS: SODIUM CHLOR 0.45% KCL 20 MEQ 20 MEQ/1,000 ML BAG IV SCH (14:28)
[2020-07-07] MEDS: TRAVOPROST 0.004% OPH SOLN 2.5 ML BOTTLE RIGHT EYE SCH (20:22)
[2020-07-08] MEDS: INSULIN REGULAR 100 UNIT/ML SUBCUT SCH ×6 (00:08→20:04)
[2020-07-08] MEDS: ALBUTEROL/IPRATROPIUM 3 ML NEB RESP TX SCH ×4 (01:23→19:55)
[2020-07-08 05:06] LABS: Basophils % 0.1 % (0.0-0.8); Eosinophils # 0.3 10*3/uL (0.0-0.87); Eosinophils % 3.4 % (0.00-10.9); Hematocrit 31.3 VOL% (42.0-52.0); Hemoglobin 10.3 GM/DL (14.0-18.0); Immature Granulocytes % 0.7 %; Immature Granulocytes Absolute 0.07 #; Lymphocytes # 0.3 10*3/uL (1.4-4.0); Lymphocytes % 3.3 % (21.2-54.2); Mean Corpuscular HGB Conc 32.9 GM/DL (32-36); Mean Platelet Volume 11.2 FL (9.6-12.0); Monocytes % 17.9 % (1.7-12.7); Neutrophils % 74.6 % (38.7-73.9); Platelet Count 190 T/CUMM (130-400); Red Blood Count 3.33 MC/CUMM (3.8-5.5); Red Cell Distribution Width 15.3 % (9.3-17.3); White Blood Count 9.6 T/CUMM (4-12)
[2020-07-08 05:07] LABS: ABG Base Excess 3.7 MMOL/L (-2.5-2.5); ABG HCO3 27.7 MMOL/L (20-26); ABG PCO2 51.6 MM HG (35-48); ABG PH 7.372 (7.35-7.45); ABG PO2 75.5 MM HG (80-95); ABG TCO2 27.2 MMOL/L (23-27)
[2020-07-08 05:23] LABS: Calcium 8.7 MG/DL (8.5-10.1); Osmolality,Calculated 294.4 MOS/KG (273-304)
[2020-07-08 05:27] LABS: Acanthocytes Few; Band Neutrophils 1 % (0-10); Eosinophils 5 % (0-10); Hypochromasia 1+; Lymphocytes 2 % (20-55); Microcytosis 1+; Segmented Neutrophils 71 % (50-85); Total Cells Counted 100
[2020-07-08 05:28] LABS: Platelet Estimate Adequate
[2020-07-08] MEDS: DILTIAZEM INJ 100 MG in SODIUM CHLORIDE 0.9% 100 ML IV SCH (06:13)
[2020-07-08] MEDS: ASPIRIN EC 81 MG TABLET PO SCH (08:51)
[2020-07-08] MEDS: ASCORBIC ACID 500 MG TABLET PO SCH ×2 (08:51→21:27)
[2020-07-08] MEDS: TAMSULOSIN 0.4 MG CAPSULE PO SCH (08:51)
[2020-07-08] MEDS: AMIODARONE 200 MG TABLET PO SCH ×2 (08:51→21:27)
[2020-07-08] MEDS: DILTIAZEM 30 MG TABLET PO SCH ×4 (08:52→21:27)
[2020-07-08] MEDS: APIXABAN 2.5 MG TABLET PO SCH ×2 (08:52→21:27)
[2020-07-08] MEDS: DORZOLAMIDE/TIMOLOL OPH SOLN 10 ML BOTTLE BOTH EYES SCH ×2 (08:52→21:30)
[2020-07-08] MEDS: CHLORHEXIDINE 0.12% ORAL RINSE 60 ML BOTTLE SWISH/SPIT SCH ×2 (08:53→21:36)
[2020-07-08] MEDS: lisinopriL 10 MG TABLET PO SCH (11:38)
[2020-07-08] MEDS ORDERED: ALUMINUM/MAGNES/SIMETH MAX STR 30 ML UDCUP PO PRN (14:09)
[2020-07-08] MEDS ORDERED: ONDANSETRON 4 MG/2 ML VIAL IV PRN (14:09)
[2020-07-08] MEDS ORDERED: MAGNESIUM SULF RIDER 4 GM/100 ML PREMIX IV PRN (14:09)
[2020-07-08] MEDS ORDERED: POTASSIUM CHLORIDE 20 MEQ TABLET PO PRN (14:09)
[2020-07-08] MEDS ORDERED: DEXTROSE 50% 25 GM/50 ML VIAL IV PRN (14:09)
[2020-07-08] MEDS ORDERED: MAGNESIUM SULF RIDER 2 GM/50 ML PREMIX IV PRN (14:09)
[2020-07-08] MEDS ORDERED: GLUCAGON 1 MG VIAL IM PRN (14:09)
[2020-07-08] MEDS ORDERED: MAGNESIUM HYDROXIDE SUSP 30 ML UDCUP PO PRN (14:09)
[2020-07-08] MEDS: ACETAMINOPHEN 325 MG TABLET PO PRN ×2 (14:55→19:13)
[2020-07-08] MEDS: DIGOXIN 0.125 MG TABLET PO SCH (16:16)
[2020-07-08] MEDS: ALPRAZolam 0.25 MG TABLET PO PRN (19:13)
[2020-07-08] MEDS ORDERED: ACETAMINOPHEN 325 MG TABLET PO PRN (21:00)
[2020-07-08] MEDS: ZALEPLON 5 MG CAPSULE PO PRN (21:27)
[2020-07-08] MEDS: TRAVOPROST 0.004% OPH SOLN 2.5 ML BOTTLE RIGHT EYE SCH (21:30)
[2020-07-08] MEDS: glipiZIDE 5 MG TABLET PO SCH (21:36)
[2020-07-09] MEDS: INSULIN REGULAR 100 UNIT/ML SUBCUT SCH ×6 (00:51→20:41)
[2020-07-09] MEDS: ALBUTEROL/IPRATROPIUM 3 ML NEB RESP TX SCH ×4 (00:53→19:49)
[2020-07-09] MEDS ORDERED: AMIODARONE INJ 150 MG in DEXTROSE 5% 100 ML IV ONE (03:59)
[2020-07-09] MEDS ORDERED: AMIODARONE INJ 450 MG in DEXTROSE 5% 241 ML IV SCH ×2 (04:00→10:00)
[2020-07-09] MEDS ORDERED: AMIODARONE 150 MG/3 ML VIAL ONE (04:03)
[2020-07-09] MEDS ORDERED: AMIODARONE 450 MG/9 ML VIAL IV ONE (04:03)
[2020-07-09] MEDS: ALPRAZolam 0.25 MG TABLET PO PRN (04:17)
[2020-07-09] MEDS: ACETAMINOPHEN 325 MG TABLET PO PRN ×2 (04:17→14:40)
[2020-07-09 04:59] LABS: Basophils % 0.2 % (0.0-0.8); Eosinophils # 0.3 10*3/uL (0.0-0.87); Eosinophils % 2.4 % (0.00-10.9); Hematocrit 33.2 VOL% (42.0-52.0); Hemoglobin 10.6 GM/DL (14.0-18.0); Immature Granulocytes % 2.4 %; Immature Granulocytes Absolute 0.29 #; Lymphocytes # 0.5 10*3/uL (1.4-4.0); Lymphocytes % 3.9 % (21.2-54.2); Mean Corpuscular HGB Conc 31.9 GM/DL (32-36); Mean Corpuscular Volume 94.3 FL (87-102); Mean Platelet Volume 11.3 FL (9.6-12.0); Monocytes % 17.4 % (1.7-12.7); Neutrophils % 73.7 % (38.7-73.9); Platelet Count 238 T/CUMM (130-400); Red Blood Count 3.52 MC/CUMM (3.8-5.5); Red Cell Distribution Width 15.2 % (9.3-17.3); White Blood Count 12.2 T/CUMM (4-12)
[2020-07-09 05:14] LABS: Alanine Aminotransferase 64 U/L (16-61); Albumin 2.9 G/DL (3.4-5.0); Alkaline Phosphatase 120 U/L (45-117); Aspartate Amino Transferase 34 U/L (0-37); Bilirubin,Indirect 0.7 MG/DL (0.0-1.0); Blood Urea Nitrogen 37 MG/DL (7-18); Calcium 8.9 MG/DL (8.5-10.1); Carbon Dioxide 29 MMOL/L (21-32); Estimated Glom Filtration Rate 79 ML/MIN; Glucose 138 MG/DL (74-106); Osmolality,Calculated 291.3 MOS/KG (273-304); Potassium 3.8 MMOL/L (3.5-5.1); Sodium 141 MMOL/L (136-145); Total Protein 5.6 G/DL (6.4-8.2); Troponin I 0.163 NG/ML (0.00-0.045)
[2020-07-09 05:21] LABS: Eosinophils 4 % (0-10); Lymphocytes 2 % (20-55); Platelet Estimate Adequate; Segmented Neutrophils 81 % (50-85); Total Cells Counted 100
[2020-07-09 05:22] LABS: Hypochromasia 1+; Microcytosis 1+
[2020-07-09] MEDS ORDERED: FUROSEMIDE 40 MG/4 ML VIAL IV ONE (06:00)
[2020-07-09] MEDS: ASCORBIC ACID 500 MG TABLET PO SCH ×2 (08:51→20:05)
[2020-07-09] MEDS: FERROUS SULFATE 325 MG TABLET PO SCH (08:51)
[2020-07-09] MEDS: glipiZIDE 5 MG TABLET PO SCH ×2 (08:51→20:04)
[2020-07-09] MEDS: DILTIAZEM 30 MG TABLET PO SCH ×4 (08:51→20:04)
[2020-07-09] MEDS: DOCUSATE SODIUM 100 MG CAPSULE PO SCH (08:51)
[2020-07-09] MEDS: ASPIRIN EC 81 MG TABLET PO SCH (08:52)
[2020-07-09] MEDS: DORZOLAMIDE/TIMOLOL OPH SOLN 10 ML BOTTLE BOTH EYES SCH ×2 (08:52→20:22)
[2020-07-09] MEDS: PANTOPRAZOLE 40 MG TABLET PO SCH (08:52)
[2020-07-09] MEDS: TAMSULOSIN 0.4 MG CAPSULE PO SCH (08:52)
[2020-07-09] MEDS: APIXABAN 2.5 MG TABLET PO SCH ×2 (08:52→20:05)
[2020-07-09] MEDS: lisinopriL 10 MG TABLET PO SCH (08:52)
[2020-07-09] MEDS: CHLORHEXIDINE 0.12% ORAL RINSE 60 ML BOTTLE SWISH/SPIT SCH ×2 (08:52→20:06)
[2020-07-09] MEDS: AMIODARONE 200 MG TABLET PO SCH ×2 (08:52→20:05)
[2020-07-09] MEDS: DIGOXIN 0.125 MG TABLET PO SCH (12:46)
[2020-07-09] MEDS: ZALEPLON 5 MG CAPSULE PO PRN (20:21)
[2020-07-09] MEDS: TRAVOPROST 0.004% OPH SOLN 2.5 ML BOTTLE RIGHT EYE SCH (20:22)
[2020-07-10] MEDS: INSULIN REGULAR 100 UNIT/ML SUBCUT SCH ×5 (01:01→16:29)
[2020-07-10] MEDS: ALBUTEROL/IPRATROPIUM 3 ML NEB RESP TX SCH ×4 (01:42→19:43)
[2020-07-10] MEDS: ALPRAZolam 0.25 MG TABLET PO PRN (01:45)
[2020-07-10 04:33] LABS: Basophils % 0.1 % (0.0-0.8); Eosinophils # 0.1 10*3/uL (0.0-0.87); Hematocrit 31.6 VOL% (42.0-52.0); Hemoglobin 10.1 GM/DL (14.0-18.0); Immature Granulocytes % 2.3 %; Immature Granulocytes Absolute 0.31 #; Lymphocytes # 0.5 10*3/uL (1.4-4.0); Lymphocytes % 3.6 % (21.2-54.2); Mean Corpuscular Volume 95.2 FL (87-102); Mean Platelet Volume 11.5 FL (9.6-12.0); Monocytes % 14.3 % (1.7-12.7); Neutrophils % 78.7 % (38.7-73.9); Platelet Count 266 T/CUMM (130-400); Red Blood Count 3.32 MC/CUMM (3.8-5.5); Red Cell Distribution Width 15.4 % (9.3-17.3); White Blood Count 13.2 T/CUMM (4-12)
[2020-07-10 04:53] LABS: Calcium 8.5 MG/DL (8.5-10.1); Osmolality,Calculated 289.3 MOS/KG (273-304); Potassium 4.3 MMOL/L (3.5-5.1)
[2020-07-10 04:58] LABS: Band Neutrophils 3 % (0-10); Hypochromasia 1+; Lymphocytes 7 % (20-55); Microcytosis 1+; Platelet Estimate Adequate; Segmented Neutrophils 79 % (50-85); Total Cells Counted 100
[2020-07-10 05:03] LABS: Alanine Aminotransferase 53 U/L (16-61); Albumin 2.8 G/DL (3.4-5.0); Alkaline Phosphatase 112 U/L (45-117); Aspartate Amino Transferase 29 U/L (0-37); Bilirubin,Indirect 0.7 MG/DL (0.0-1.0); Blood Urea Nitrogen 31 MG/DL (7-18); Calcium 8.7 MG/DL (8.5-10.1); Carbon Dioxide 32 MMOL/L (21-32); Estimated Glom Filtration Rate 84 ML/MIN; Glucose 132 MG/DL (74-106); Osmolality,Calculated 289.3 MOS/KG (273-304); Potassium 4.1 MMOL/L (3.5-5.1); Sodium 141 MMOL/L (136-145); Total Protein 5.6 G/DL (6.4-8.2)
[2020-07-10 05:06] LABS: Troponin I 0.103 NG/ML (0.00-0.045)
[2020-07-10] MEDS: FERROUS SULFATE 325 MG TABLET PO SCH (08:23)
[2020-07-10] MEDS: APIXABAN 2.5 MG TABLET PO SCH ×2 (08:23→20:52)
[2020-07-10] MEDS: AMIODARONE 200 MG TABLET PO SCH ×2 (08:23→20:52)
[2020-07-10] MEDS: DILTIAZEM 30 MG TABLET PO SCH (08:24)
[2020-07-10] MEDS: ASCORBIC ACID 500 MG TABLET PO SCH ×2 (08:24→20:51)
[2020-07-10] MEDS: BENZONATATE 100 MG CAPSULE PO PRN ×2 (08:24→17:17)
[2020-07-10] MEDS: DOCUSATE SODIUM 100 MG CAPSULE PO SCH (08:24)
[2020-07-10] MEDS: TAMSULOSIN 0.4 MG CAPSULE PO SCH (08:24)
[2020-07-10] MEDS: FUROSEMIDE 40 MG TABLET PO SCH (08:25)
[2020-07-10] MEDS: CHLORHEXIDINE 0.12% ORAL RINSE 60 ML BOTTLE SWISH/SPIT SCH (08:25)
[2020-07-10] MEDS: DORZOLAMIDE/TIMOLOL OPH SOLN 10 ML BOTTLE BOTH EYES SCH ×2 (08:25→22:15)
[2020-07-10] MEDS: PANTOPRAZOLE 40 MG TABLET PO SCH (08:25)
[2020-07-10] MEDS: glipiZIDE 5 MG TABLET PO SCH ×2 (08:25→20:51)
[2020-07-10] MEDS: lisinopriL 10 MG TABLET PO SCH (08:25)
[2020-07-10] MEDS: ASPIRIN EC 81 MG TABLET PO SCH (08:25)
[2020-07-10] MEDS ORDERED: BENZONATATE 100 MG CAPSULE PO SCH (09:00)
[2020-07-10] MEDS: METOPROLOL TARTRATE 25 MG TABLET PO SCH ×2 (12:07→20:52)
[2020-07-10] MEDS ORDERED: ONDANSETRON 4 MG/2 ML VIAL IV PRN (17:10)
[2020-07-10] MEDS ORDERED: GLUCAGON 1 MG VIAL IM PRN (17:10)
[2020-07-10] MEDS ORDERED: DEXTROSE 50% 25 GM/50 ML VIAL IV PRN (17:10)
[2020-07-10] MEDS ORDERED: SODIUM CHLOR 0.45% KCL 20 MEQ 20 MEQ/1,000 ML BAG IV SCH (17:10)
[2020-07-10] MEDS ORDERED: ALUMINUM/MAGNES/SIMETH MAX STR 30 ML UDCUP PO PRN (17:10)
[2020-07-10] MEDS ORDERED: MAGNESIUM SULF RIDER 4 GM/100 ML PREMIX IV PRN (17:10)
[2020-07-10] MEDS ORDERED: MAGNESIUM SULF RIDER 2 GM/50 ML PREMIX IV PRN (17:10)
[2020-07-10] MEDS ORDERED: ZALEPLON 5 MG CAPSULE PO PRN (17:10)
[2020-07-10] MEDS ORDERED: POTASSIUM CHLORIDE 20 MEQ TABLET PO PRN (17:10)
[2020-07-10] MEDS ORDERED: DILTIAZEM 30 MG TABLET PO SCH (21:00)
[2020-07-10] MEDS: TRAVOPROST 0.004% OPH SOLN 2.5 ML BOTTLE RIGHT EYE SCH (22:15)
[2020-07-11] MEDS: ALBUTEROL/IPRATROPIUM 3 ML NEB RESP TX SCH ×4 (00:06→19:47)
[2020-07-11 07:29] LABS: Albumin 2.6 G/DL (3.4-5.0); Calcium 8.6 MG/DL (8.5-10.1); Potassium 4.2 MMOL/L (3.5-5.1); Total Protein 5.4 G/DL (6.4-8.2)
[2020-07-11 07:30] LABS: Alanine Aminotransferase 50 U/L (16-61); Albumin 2.8 G/DL (3.4-5.0); Alkaline Phosphatase 98 U/L (45-117); Aspartate Amino Transferase 32 U/L (0-37); Bilirubin,Indirect 0.6 MG/DL (0.0-1.0); Troponin I 0.077 NG/ML (0.00-0.045)
[2020-07-11 07:43] LABS: Basophils % 0.2 % (0.0-0.8); Eosinophils # 0.2 10*3/uL (0.0-0.87); Eosinophils % 1.5 % (0.00-10.9); Hematocrit 30.7 VOL% (42.0-52.0); Hemoglobin 9.6 GM/DL (14.0-18.0); Immature Granulocytes % 2.3 %; Immature Granulocytes Absolute 0.28 #; Lymphocytes # 0.5 10*3/uL (1.4-4.0); Lymphocytes % 4.3 % (21.2-54.2); Mean Corpuscular HGB Conc 31.3 GM/DL (32-36); Mean Corpuscular Volume 98.1 FL (87-102); Mean Platelet Volume 10.1 FL (9.6-12.0); Monocytes % 13.6 % (1.7-12.7); Neutrophils % 78.1 % (38.7-73.9); Platelet Count 324 T/CUMM (130-400); Red Blood Count 3.13 MC/CUMM (3.8-5.5); Red Cell Distribution Width 15.8 % (9.3-17.3); White Blood Count 12.2 T/CUMM (4-12)
[2020-07-11 08:10] LABS: Band Neutrophils 2 % (0-10); Eosinophils 2 % (0-10); Hypochromasia 1+; Lymphocytes 3 % (20-55); Microcytosis 1+; Platelet Estimate Normal; Segmented Neutrophils 84 % (50-85); Total Cells Counted 100
[2020-07-11] MEDS: PIOGLITAZONE 15 MG TABLET PO SCH (09:34)
[2020-07-11] MEDS: ASCORBIC ACID 500 MG TABLET PO SCH ×2 (09:35→21:05)
[2020-07-11] MEDS: TAMSULOSIN 0.4 MG CAPSULE PO SCH (09:35)
[2020-07-11] MEDS: DOCUSATE SODIUM 100 MG CAPSULE PO SCH (09:36)
[2020-07-11] MEDS: APIXABAN 2.5 MG TABLET PO SCH ×2 (09:36→21:06)
[2020-07-11] MEDS: METOPROLOL TARTRATE 25 MG TABLET PO SCH ×2 (09:36→21:05)
[2020-07-11] MEDS: FERROUS SULFATE 325 MG TABLET PO SCH (09:37)
[2020-07-11] MEDS: AMIODARONE 200 MG TABLET PO SCH ×2 (09:37→21:05)
[2020-07-11] MEDS: FUROSEMIDE 40 MG TABLET PO SCH (09:37)
[2020-07-11] MEDS: ASPIRIN EC 81 MG TABLET PO SCH (09:37)
[2020-07-11] MEDS: glipiZIDE 5 MG TABLET PO SCH ×2 (09:37→21:06)
[2020-07-11] MEDS: PANTOPRAZOLE 40 MG TABLET PO SCH (09:38)
[2020-07-11] MEDS: MAGNESIUM HYDROXIDE SUSP 30 ML UDCUP PO PRN (09:51)
[2020-07-11] MEDS: DORZOLAMIDE/TIMOLOL OPH SOLN 10 ML BOTTLE BOTH EYES SCH ×2 (11:22→21:07)
[2020-07-11] MEDS: ROSUVASTATIN 20 MG TABLET PO SCH (21:05)
[2020-07-11] MEDS: TRAVOPROST 0.004% OPH SOLN 2.5 ML BOTTLE RIGHT EYE SCH (21:07)
[2020-07-12] MEDS: ALBUTEROL/IPRATROPIUM 3 ML NEB RESP TX SCH ×4 (01:32→20:01)
[2020-07-12 06:11] LABS: Basophils % 0.2 % (0.0-0.8); Eosinophils # 0.2 10*3/uL (0.0-0.87); Eosinophils % 1.6 % (0.00-10.9); Hematocrit 29.4 VOL% (42.0-52.0); Hemoglobin 9.2 GM/DL (14.0-18.0); Immature Granulocytes % 2.2 %; Immature Granulocytes Absolute 0.28 #; Lymphocytes # 0.5 10*3/uL (1.4-4.0); Mean Corpuscular HGB Conc 31.3 GM/DL (32-36); Mean Corpuscular Volume 96.7 FL (87-102); Monocytes % 12.5 % (1.7-12.7); Neutrophils % 79.5 % (38.7-73.9); Platelet Count 343 T/CUMM (130-400); Red Blood Count 3.04 MC/CUMM (3.8-5.5); Red Cell Distribution Width 15.7 % (9.3-17.3); White Blood Count 12.8 T/CUMM (4-12)
[2020-07-12 06:41] LABS: Eosinophils 2 % (0-10); Hypochromasia Slight; Lymphocytes 7 % (20-55); Platelet Estimate Normal; Segmented Neutrophils 80 % (50-85); Total Cells Counted 100
[2020-07-12 06:45] LABS: Alanine Aminotransferase 62 U/L (16-61); Albumin 2.7 G/DL (3.4-5.0); Alkaline Phosphatase 92 U/L (45-117); Aspartate Amino Transferase 53 U/L (0-37); Bilirubin,Indirect 0.6 MG/DL (0.0-1.0); Blood Urea Nitrogen 24 MG/DL (7-18); Calcium 8.7 MG/DL (8.5-10.1); Carbon Dioxide 33 MMOL/L (21-32); Estimated Glom Filtration Rate 79 ML/MIN; Glucose 134 MG/DL (74-106); Osmolality,Calculated 286.3 MOS/KG (273-304); Potassium 3.6 MMOL/L (3.5-5.1); Sodium 141 MMOL/L (136-145); Total Protein 5.4 G/DL (6.4-8.2)
[2020-07-12 07:37] LABS: Troponin I 0.063 NG/ML (0.00-0.045)
[2020-07-12] MEDS: PANTOPRAZOLE 40 MG TABLET PO SCH (09:53)
[2020-07-12] MEDS: ASCORBIC ACID 500 MG TABLET PO SCH ×2 (09:54→21:15)
[2020-07-12] MEDS: ASPIRIN EC 81 MG TABLET PO SCH (09:58)
[2020-07-12] MEDS: APIXABAN 2.5 MG TABLET PO SCH ×2 (09:58→21:16)
[2020-07-12] MEDS: METOPROLOL TARTRATE 25 MG TABLET PO SCH ×2 (09:58→21:15)
[2020-07-12] MEDS: TAMSULOSIN 0.4 MG CAPSULE PO SCH (09:59)
[2020-07-12] MEDS: FERROUS SULFATE 325 MG TABLET PO SCH (10:00)
[2020-07-12] MEDS: LOSARTAN 25 MG TABLET PO SCH (10:00)
[2020-07-12] MEDS: FUROSEMIDE 40 MG TABLET PO SCH (10:00)
[2020-07-12] MEDS: glipiZIDE 5 MG TABLET PO SCH ×2 (10:00→21:16)
[2020-07-12] MEDS: PIOGLITAZONE 15 MG TABLET PO SCH (10:00)
[2020-07-12] MEDS: DORZOLAMIDE/TIMOLOL OPH SOLN 10 ML BOTTLE BOTH EYES SCH ×2 (10:06→21:17)
[2020-07-12] MEDS: DOCUSATE SODIUM 100 MG CAPSULE PO SCH (10:06)
[2020-07-12] MEDS: AMIODARONE 200 MG TABLET PO SCH ×2 (10:17→21:15)
[2020-07-12] MEDS: MAGNESIUM HYDROXIDE SUSP 30 ML UDCUP PO PRN (13:05)
[2020-07-12] MEDS: ROSUVASTATIN 20 MG TABLET PO SCH (21:15)
[2020-07-12] MEDS: TRAVOPROST 0.004% OPH SOLN 2.5 ML BOTTLE RIGHT EYE SCH (21:16)
[2020-07-12] MEDS: BENZONATATE 100 MG CAPSULE PO PRN (21:25)
[2020-07-13] MEDS: ALBUTEROL/IPRATROPIUM 3 ML NEB RESP TX SCH ×4 (01:00→20:29)
[2020-07-13] MEDS: BENZONATATE 100 MG CAPSULE PO PRN ×2 (05:38→21:08)
[2020-07-13 07:00] LABS: Basophils % 0.2 % (0.0-0.8); Eosinophils # 0.2 10*3/uL (0.0-0.87); Eosinophils % 1.3 % (0.00-10.9); Hematocrit 27.8 VOL% (42.0-52.0); Immature Granulocytes Absolute 0.26 #; Lymphocytes # 0.6 10*3/uL (1.4-4.0); Lymphocytes % 4.7 % (21.2-54.2); Mean Corpuscular HGB Conc 32.4 GM/DL (32-36); Mean Corpuscular Volume 97.2 FL (87-102); Mean Platelet Volume 11.4 FL (9.6-12.0); Monocytes % 10.7 % (1.7-12.7); Neutrophils % 81.1 % (38.7-73.9); Platelet Count 345 T/CUMM (130-400); Red Blood Count 2.86 MC/CUMM (3.8-5.5); Red Cell Distribution Width 15.5 % (9.3-17.3); White Blood Count 12.8 T/CUMM (4-12)
[2020-07-13 07:17] LABS: Alanine Aminotransferase 54 U/L (16-61); Albumin 2.7 G/DL (3.4-5.0); Alkaline Phosphatase 90 U/L (45-117); Aspartate Amino Transferase 39 U/L (0-37); Bilirubin,Indirect 0.5 MG/DL (0.0-1.0); Blood Urea Nitrogen 23 MG/DL (7-18); Calcium 8.3 MG/DL (8.5-10.1); Carbon Dioxide 33 MMOL/L (21-32); Estimated Glom Filtration Rate 76 ML/MIN; Glucose 113 MG/DL (74-106); Osmolality,Calculated 287.1 MOS/KG (273-304); Potassium 3.5 MMOL/L (3.5-5.1); Sodium 142 MMOL/L (136-145); Total Protein 5.3 G/DL (6.4-8.2)
[2020-07-13 07:19] LABS: Troponin I 0.065 NG/ML (0.00-0.045)
[2020-07-13 07:26] LABS: Band Neutrophils 1 % (0-10); Eosinophils 1 % (0-10); Lymphocytes 5 % (20-55); Platelet Estimate Adequate; Segmented Neutrophils 88 % (50-85); Total Cells Counted 100
[2020-07-13 07:27] LABS: Hypochromasia 1+; Microcytosis 1+
[2020-07-13] MEDS: PANTOPRAZOLE 40 MG TABLET PO SCH (09:49)
[2020-07-13] MEDS: AMIODARONE 200 MG TABLET PO SCH ×2 (09:49→21:08)
[2020-07-13] MEDS: glipiZIDE 5 MG TABLET PO SCH ×2 (09:51→21:08)
[2020-07-13] MEDS: FUROSEMIDE 40 MG TABLET PO SCH (09:52)
[2020-07-13] MEDS: APIXABAN 2.5 MG TABLET PO SCH ×2 (09:53→21:08)
[2020-07-13] MEDS: METOPROLOL TARTRATE 25 MG TABLET PO SCH ×2 (09:53→21:08)
[2020-07-13] MEDS: ASCORBIC ACID 500 MG TABLET PO SCH ×2 (09:56→21:08)
[2020-07-13] MEDS: ASPIRIN EC 81 MG TABLET PO SCH (09:57)
[2020-07-13] MEDS: TAMSULOSIN 0.4 MG CAPSULE PO SCH (09:57)
[2020-07-13] MEDS: FERROUS SULFATE 325 MG TABLET PO SCH (09:59)
[2020-07-13] MEDS: DOCUSATE SODIUM 100 MG CAPSULE PO SCH (09:59)
[2020-07-13] MEDS ORDERED: POTASSIUM CHLORIDE 20 MEQ TABLET PO ONE (10:00)
[2020-07-13] MEDS: LOSARTAN 25 MG TABLET PO SCH (10:00)
[2020-07-13] MEDS: PIOGLITAZONE 15 MG TABLET PO SCH (10:00)
[2020-07-13] MEDS: DORZOLAMIDE/TIMOLOL OPH SOLN 10 ML BOTTLE BOTH EYES SCH ×2 (10:01→21:07)
[2020-07-13] MEDS: ACETAMINOPHEN 325 MG TABLET PO PRN (18:36)
[2020-07-13] MEDS: ROSUVASTATIN 20 MG TABLET PO SCH (21:08)
[2020-07-13] MEDS: TRAVOPROST 0.004% OPH SOLN 2.5 ML BOTTLE RIGHT EYE SCH (21:08)
[2020-07-14] MEDS: ACETAMINOPHEN 325 MG TABLET PO PRN ×3 (01:30→22:09)
[2020-07-14] MEDS: ALBUTEROL/IPRATROPIUM 3 ML NEB RESP TX SCH ×4 (03:43→21:08)
[2020-07-14 05:40] LABS: Basophils % 0.2 % (0.0-0.8); Eosinophils # 0.2 10*3/uL (0.0-0.87); Eosinophils % 1.3 % (0.00-10.9); Hematocrit 29.6 VOL% (42.0-52.0); Hemoglobin 9.6 GM/DL (14.0-18.0); Immature Granulocytes % 1.4 %; Immature Granulocytes Absolute 0.21 #; Lymphocytes # 0.7 10*3/uL (1.4-4.0); Lymphocytes % 4.7 % (21.2-54.2); Mean Corpuscular HGB Conc 32.4 GM/DL (32-36); Mean Corpuscular Volume 95.2 FL (87-102); Mean Platelet Volume 10.6 FL (9.6-12.0); Neutrophils % 83.4 % (38.7-73.9); Platelet Count 391 T/CUMM (130-400); Red Blood Count 3.11 MC/CUMM (3.8-5.5); Red Cell Distribution Width 15.3 % (9.3-17.3); White Blood Count 14.8 T/CUMM (4-12)
[2020-07-14 06:00] LABS: Alanine Aminotransferase 53 U/L (16-61); Alkaline Phosphatase 104 U/L (45-117); Aspartate Amino Transferase 31 U/L (0-37); Bilirubin,Indirect 0.5 MG/DL (0.0-1.0); Blood Urea Nitrogen 22 MG/DL (7-18); Calcium 8.5 MG/DL (8.5-10.1); Carbon Dioxide 31 MMOL/L (21-32); Estimated Glom Filtration Rate 76 ML/MIN; Glucose 153 MG/DL (74-106); Osmolality,Calculated 284.4 MOS/KG (273-304); Potassium 3.6 MMOL/L (3.5-5.1); Sodium 140 MMOL/L (136-145); Total Protein 5.9 G/DL (6.4-8.2); Troponin I 0.043 NG/ML (0.00-0.045)
[2020-07-14 06:13] LABS: Eosinophils 1 % (0-10); Lymphocytes 6 % (20-55); Platelet Estimate Normal; Segmented Neutrophils 85 % (50-85); Total Cells Counted 100
[2020-07-14 06:14] LABS: Hypochromasia Slight
[2020-07-14] MEDS: MAGNESIUM HYDROXIDE SUSP 30 ML UDCUP PO PRN (08:58)
[2020-07-14] MEDS: TAMSULOSIN 0.4 MG CAPSULE PO SCH (08:58)
[2020-07-14] MEDS: LOSARTAN 50 MG TABLET PO SCH (08:58)
[2020-07-14] MEDS: AMIODARONE 200 MG TABLET PO SCH ×2 (08:58→22:09)
[2020-07-14] MEDS: APIXABAN 2.5 MG TABLET PO SCH ×2 (08:58→22:08)
[2020-07-14] MEDS: PANTOPRAZOLE 40 MG TABLET PO SCH (08:59)
[2020-07-14] MEDS: FERROUS SULFATE 325 MG TABLET PO SCH (08:59)
[2020-07-14] MEDS: FUROSEMIDE 40 MG TABLET PO SCH (08:59)
[2020-07-14] MEDS: glipiZIDE 5 MG TABLET PO SCH ×2 (08:59→22:20)
[2020-07-14] MEDS: METOPROLOL TARTRATE 25 MG TABLET PO SCH ×2 (08:59→22:09)
[2020-07-14] MEDS: PIOGLITAZONE 15 MG TABLET PO SCH (08:59)
[2020-07-14] MEDS: DOCUSATE SODIUM 100 MG CAPSULE PO SCH (08:59)
[2020-07-14] MEDS: ASPIRIN EC 81 MG TABLET PO SCH (08:59)
[2020-07-14] MEDS: ASCORBIC ACID 500 MG TABLET PO SCH ×2 (08:59→22:08)
[2020-07-14] MEDS: DORZOLAMIDE/TIMOLOL OPH SOLN 10 ML BOTTLE BOTH EYES SCH ×2 (09:01→22:13)
[2020-07-14] MEDS ORDERED: LACTULOSE 20 GM/30 ML UDCUP PO PRN (11:10)
[2020-07-14] MEDS ORDERED: SODIUM PHOSPHATE ENEMA 133 ML BOTTLE RECTAL ONE (14:09)
[2020-07-14] MEDS: ROSUVASTATIN 20 MG TABLET PO SCH (22:08)
[2020-07-14] MEDS: TRAVOPROST 0.004% OPH SOLN 2.5 ML BOTTLE RIGHT EYE SCH (22:15)
[2020-07-15] MEDS: ALBUTEROL/IPRATROPIUM 3 ML NEB RESP TX SCH ×2 (00:26→07:42)
[2020-07-15] MEDS: BENZONATATE 100 MG CAPSULE PO PRN (04:14)
[2020-07-15] MEDS ORDERED: LACTULOSE 20 GM/30 ML UDCUP PO ONE (07:44)
[2020-07-15 07:45] LABS: Basophils % 0.2 % (0.0-0.8); Eosinophils # 0.2 10*3/uL (0.0-0.87); Eosinophils % 1.5 % (0.00-10.9); Hemoglobin 9.2 GM/DL (14.0-18.0); Immature Granulocytes % 1.4 %; Immature Granulocytes Absolute 0.21 #; Lymphocytes # 0.6 10*3/uL (1.4-4.0); Lymphocytes % 4.2 % (21.2-54.2); Mean Corpuscular HGB Conc 30.7 GM/DL (32-36); Mean Corpuscular Volume 99.3 FL (87-102); Mean Platelet Volume 11.3 FL (9.6-12.0); Monocytes % 8.8 % (1.7-12.7); Neutrophils % 83.9 % (38.7-73.9); Platelet Count 418 T/CUMM (130-400); Red Blood Count 3.02 MC/CUMM (3.8-5.5); Red Cell Distribution Width 15.4 % (9.3-17.3); White Blood Count 14.8 T/CUMM (4-12)
[2020-07-15 08:08] LABS: Eosinophils 2 % (0-10); Hypochromasia 1+; Lymphocytes 3 % (20-55); Microcytosis 1+; Platelet Estimate Adequate; Segmented Neutrophils 91 % (50-85); Total Cells Counted 100
[2020-07-15 08:16] LABS: Alanine Aminotransferase 47 U/L (16-61); Alkaline Phosphatase 103 U/L (45-117); Aspartate Amino Transferase 24 U/L (0-37); Blood Urea Nitrogen 22 MG/DL (7-18); Calcium 8.6 MG/DL (8.5-10.1); Carbon Dioxide 34 MMOL/L (21-32); Estimated Glom Filtration Rate 67 ML/MIN; Glucose 131 MG/DL (74-106); Osmolality,Calculated 285.3 MOS/KG (273-304); Potassium 3.3 MMOL/L (3.5-5.1); Sodium 141 MMOL/L (136-145); Total Protein 5.9 G/DL (6.4-8.2); Troponin I 0.038 NG/ML (0.00-0.045)
[2020-07-15] MEDS ORDERED: glipiZIDE 10 MG TABLET PO SCH (09:00)
[2020-07-15] MEDS: FUROSEMIDE 40 MG TABLET PO SCH (09:06)
[2020-07-15] MEDS: PIOGLITAZONE 15 MG TABLET PO SCH (09:06)
[2020-07-15] MEDS: AMIODARONE 200 MG TABLET PO SCH (09:06)
[2020-07-15] MEDS: FERROUS SULFATE 325 MG TABLET PO SCH (09:06)
[2020-07-15] MEDS: ASCORBIC ACID 500 MG TABLET PO SCH (09:06)
[2020-07-15] MEDS: DOCUSATE SODIUM 100 MG CAPSULE PO SCH (09:06)
[2020-07-15] MEDS: APIXABAN 2.5 MG TABLET PO SCH (09:06)
[2020-07-15] MEDS: PANTOPRAZOLE 40 MG TABLET PO SCH (09:06)
[2020-07-15] MEDS: ASPIRIN EC 81 MG TABLET PO SCH (09:06)
[2020-07-15] MEDS: LOSARTAN 50 MG TABLET PO SCH (09:07)
[2020-07-15] MEDS: DORZOLAMIDE/TIMOLOL OPH SOLN 10 ML BOTTLE BOTH EYES SCH (09:07)
[2020-07-15] MEDS: TAMSULOSIN 0.4 MG CAPSULE PO SCH (09:07)
[2020-07-15] MEDS: METOPROLOL TARTRATE 25 MG TABLET PO SCH (09:07)
[2020-07-15 11:44] VITALS: BP 136/53
[2020-07-15] MEDS ORDERED: DOCUSATE SODIUM 100 MG CAPSULE PO SCH (21:00)
== END 2020-07-15 13:27 | disposition hospice, home (50) | DRG 235 ==
LOC: N.TELEN 07-01 09:03 → N.CVR 07-02 10:20 → N.ICU 07-03 07:09 → N.TELES 07-10 18:43